=== PATIENT | female | born 1960 | race Caucasian/White ===

== ENCOUNTER → 2017-02-10 | Outpatient (CLI) | payer MEDICARE ==
[~2017-02-10] MED LIST: EXCEDRIN MIGRA1 EACH PO; LEVOTHYROXINE25 MC1 PO; METOPROLOL TAR25 MG; MOTRIN IB200 M1 PO; NORCO 7.5-3251 EACH PO; PROTONIX PO; SUDAFED PO
--- NOTE | ~2017-02-10 | CT2 ---
[facility] A Service of [facility] RADIOLOGY TEXT RESULTS PATIENT: DEVANTE BROOKS [facility] : 62 UNIT #: [id number] AGE: [address]: Toni Gómez MD SEX: F ORDER DR: [id number] [id number] [facility]. [place], [place] [address] [id number] O MR#: [id number] Acc #: [id number] NAME: DEVANTE BROOKS. : 1960 SEX: F STUDY DATE/TIME: 02/10/2017 7:53 UNIT: [facility] ROOM: STUDY DESCRIPTION: CT Abd and Pelv W Cont Attending Physician: Toni Gómez M.D. Referring Physician: Toni Gómez M.D. Ordering Physician: Toni Gómez M.D. Primary Care Physician: Dania Cisneros MEDICAL IMAGING REPORT This report is preliminary unless electronic signature is present EXAM CT abdomen and pelvis INDICATION Colonic polyp. Colon cancer diagnosed in December. Observation for metastatic disease. TECHNIQUE CT of the abdomen and pelvis with p.o. and IV contrast (100 mL Isovue-370 IV contrast). Coronal and sagittal reconstructions were obtained. This CT exam was performed with one or more of the following radiation dose reduction techniques: automatic exposure control, adjustment of mA and/or kV according to patient size, and iterative reconstruction. COMPARISON None available. FINDINGS ABDOMEN: There is postsurgical change of sigmoid colon resection with subsequent re-anastomosis. No residual mass is identified in and around the sigmoid colon. No pathologically-enlarged mesenteric or retroperitoneal lymph nodes. The solid abdominal organs enhance normally. A small amount of pneumobilia suggests prior sphincterotomy. The gallbladder is surgically absent. There is a benign cyst extending off the inferior pole right kidney. The abdominal aorta is normal in caliber. There has been prior anterior abdominal wall hernia repair. PELVIS: The uterus and ovaries are normal. No enlarged pelvic or inguinal lymph nodes. The bladder is unremarkable. No acute osseous abnormalities. [facility] A Service of [facility] RADIOLOGY TEXT RESULTS PATIENT: DEVANTE BROOKS LOCATION: [facility] : 62 UNIT #: [id number] AGE: [address]: Toni Gómez MD SEX: F ORDER DR: IMPRESSION 1. No evidence of metastatic disease in the abdomen or pelvis. 2. Postsurgical change of the sigmoid colon resection with central re-anastomosis. Dictated by... Montez Merchant M.D. THIS IS AN ELECTRONICALLY VERIFIED REPORT Montez Merchant M.D. at 02/10/2017 6:22 PM SOPHIA/jarocho TD: 02/10/2017 16:00 JOB #: [id number] MEDICAL IMAGING REPORT Page 1 of 1 COPY
== END | disposition home or self-care (01) ==
LOC: CCAT 06:23
DX: K63.5 Polyp of colon (principal); Z90.49 Acquired absence of other specified parts of digestive tract
CPT/HCPCS: 74177; Q9967

== ENCOUNTER → 2017-02-26 | Outpatient (CLI) | payer MEDICARE ==
[~2017-02-26] MED LIST changes: +LAMICTAL100 MG PO; +LEVOTHYROXINE50 MC1 PO; +LITHIUM CARBON300 M2 PO; +PANTOPRAZOLE SO40 MG PO; +ZESTRIL5 MG PO
--- NOTE | ~2017-02-26 | TH ---
Unit #: [id number] #: [id number] Patient: DEVANTE BROOKS [id number] [address] [id number] O MR#: [id number] NAME: DEVANTE BROOKS. : 1960 SEX: F STUDY DATE/TIME: 02/26/2017 UNIT: [facility] ROOM: STUDY DESCRIPTION: Attending Physician: Sushma León M.D. Referring Physician: Sushma León M.D. Primary Care Physician: Dania Cisneros CARDIOLOGY REPORT EXAM Exercise Cardiolite stress test, nuclear portion. PROCEDURE Using technetium 99m labeled Cardiolite, rest and stress SPECT images were obtained. Multiple SPECT images were obtained in various views including horizontal and vertical long axis and short axis views of the left ventricle. Images were obtained by gated SPECT method. The patient was administered 11.47 mCi of Cardiolite at rest. The patient was administered 34.2 mCi of Cardiolite at peak exercise. Total exercise time is 5 minutes. On the stress images, there is an extremely small area of mild decreased isotope activity in the anteroapical wall. The rest images showed normal perfusion. Comparing rest and stress images, an extremely small area of possible stress-induced ischemia involving the anteroapical wall of the left ventricle cannot be ruled out. The left ventricular ejection fraction is calculated to be 61%. There is no focal wall motion abnormality seen. CONCLUSION 1. An extremely small area of possible stress-induced ischemia involving the anteroapical wall of the left ventricle cannot be ruled out. 2. The left ventricular ejection fraction is calculated to be 61%. 3. There is no focal wall motion abnormality seen. 4. It must be noted that the patient had chest discomfort and frequent premature ventricular complexes with exercise and during recovery. Clinical correlation is requested. Dictated by... Indy Dia TD: 02/26/2017 15:39 JOB #: [id number] Unit #: [id number] #: [id number] Patient: DEVANTE BROOKS CARDIOLOGY REPORT Page 1 of 1 X Sushma León MD <ELECTRONICALLY SIGNED> 05/31/17 [facility] CARDIOLOGY REPORT
--- NOTE | ~2017-02-26 | ST ---
Unit #: [id number] #: [id number] Patient: DEVANTE BROOKS [id number] [facility]. [address] [address] [id number] O MR#: [id number] NAME: DEVANTE BROOKS. : 1960 SEX: F STUDY DATE/TIME: 02/26/2017 UNIT: [facility] ROOM: STUDY DESCRIPTION: Exercise stress test Attending Physician: Sushma León M.D. Referring Physician: Sushma León M.D. Primary Care Physician: Dania Cisneros CARDIOLOGY REPORT PROCEDURE PERFORMED EKG portion of exercise Cardiolite stress test. REASON FOR EXAM Arrhythmia and chest pain. DISCUSSION Baseline EKG reveals sinus rhythm with a ventricular rate of 80 beats per minute. Nonspecific ST-T wave changes noted. The patient exercised on the treadmill according to the Valentino protocol for 5 minutes and 1 second achieving a workload of 5.6 METS. The maximal heart rate was 155 beats per minute, which represents 93% of the maximal age-predicted heart rate. Maximal blood pressure was 146/91 mmHg. The patient complained of some chest pressure described as a 1/10 in recovery, which resolved. There were frequent PVCs noted at baseline, as well as throughout the study. There was some trigeminy noted at one point, as well as some couplets. The patient was held for pictures. Preliminary images revealed no acute abnormalities. The patient was discharged home. Final report is pending. There were no ST or T wave changes to suggest ischemia. IMPRESSION 1. Nondiagnostic portion of EKG. 2. The patient complained of chest pain in recovery, which resolved. 3. There were frequent PVCs at baseline throughout the study. The patient also had trigeminy and couplets. 4. There were no ST or T wave changes to suggest ischemia. 5. Please correlate with Cardiolite images. Dictated by... Lucia Stern APRN for Indy Dia TD: 02/26/2017 15:01 JOB #: [id number] Unit #: [id number] #: [id number] Patient: DEVANTE BROOKS CARDIOLOGY REPORT Page 1 of 1 X CARDIOLOGY REPORT
== END | disposition home or self-care (01) ==
LOC: CNUC 08:31
DX: R07.9 Chest pain, unspecified (principal); E78.00 Pure hypercholesterolemia, unspecified; I34.0 Nonrheumatic mitral (valve) insufficiency; I34.1 Nonrheumatic mitral (valve) prolapse; I49.3 Ventricular premature depolarization
CPT/HCPCS: 78452; 93017; A9500

== ENCOUNTER → 2017-03-05 | Outpatient (CLI) | payer MEDICARE ==
[~2017-03-05] MED LIST changes: +TOPROL XL100 MG PO; +ZYRTEC5 M1 PO
--- NOTE | ~2017-03-05 | EKG ---
PATIENT: DEVANTE BROOKS UNIT #: [id number] Ventricular Rate: 66 BPM Atrial Rate: 66 BPM P-R Interval: 198 ms QRS Duration: 86 ms Q-T Interval: 398 ms QTC Calculation(Bezet): 417 ms P Hickman: 18 degrees Calculated R Hickman: -10 degrees Calculated T Hickman: 40 degrees Diagnosis Line: Sinus rhythm with occasional Premature ventricular Diagnosis Line: complexes Diagnosis Line: Otherwise normal ECG Diagnosis Line: When compared with ECG of 18-DEC-2016 06:16, Diagnosis Line: Premature ventricular complexes are now Present Diagnosis Line: Confirmed by CHERYL HERNANDEZ MD ([id number]) on 03/05/2017 Diagnosis Line: 10:43:43 PM INTERPRETING MD: MARY HERRING
[2017-03-05 09:32] LABS: HEMATOCRIT 38.6 % (35.0-45.0); HEMOGLOBIN 12.1 gm/dL (12.0-16.0); MEAN CORPUSCULAR HEMOGLOBIN 24.8 PG (28-34); MEAN CORPUSCULAR HGB CONC 31.4 g/dL (30-36); RED BLOOD COUNT 4.89 X10e (3.90-5.30); RED CELL DISTRIBUTION WIDTH 16.1 % (11.0-15.5); WHITE BLOOD COUNT 8.8 X10e3 (4.0-10.5)
[2017-03-05 09:46] LABS: PARTIAL THROMBOPLASTIN TIME 26.1 SECONDS (23.5-31.3)
[2017-03-05 10:05] LABS: BUN/CREATININE RATIO 18.57; CREATININE SERUM 0.7 mg/dL (0.6-1.4); GLOM FILT RATE Estimated 97.5 mL/min (>60)
== END | disposition home or self-care (01) ==
LOC: CCVL 09:01
PROVIDERS: Internal Medicine Cardiovascular Disease
PROC: 4A023N7 Measurement of Cardiac Sampling and Pressure, Left Heart, Percutaneous Approach (ICD-10-PCS; principal; 2017-03-05)
PROC: B211YZZ Fluoroscopy of Multiple Coronary Arteries using Other Contrast (ICD-10-PCS; 2017-03-05)
PROC: B215YZZ Fluoroscopy of Left Heart using Other Contrast (ICD-10-PCS; 2017-03-05)
DX: I50.20 Unspecified systolic (congestive) heart failure (principal); I49.3 Ventricular premature depolarization; I34.0 Nonrheumatic mitral (valve) insufficiency; I34.1 Nonrheumatic mitral (valve) prolapse; R94.39 Abnormal result of other cardiovascular function study; R07.9 Chest pain, unspecified; Z79.899 Other long term (current) drug therapy; E78.00 Pure hypercholesterolemia, unspecified; J30.9 Allergic rhinitis, unspecified; M19.90 Unspecified osteoarthritis, unspecified site; F31.9 Bipolar disorder, unspecified; C18.9 Malignant neoplasm of colon, unspecified; G45.3 Amaurosis fugax; K21.9 Gastro-esophageal reflux disease without esophagitis; G43.109 Migraine with aura, not intractable, without status migrainosus; Z82.61 Family history of arthritis; Z91.5 Personal history of self-harm; Z82.49 Family history of ischemic heart disease and other diseases of the circulatory system; Z81.8 Family history of other mental and behavioral disorders; Z83.3 Family history of diabetes mellitus; Z80.42 Family history of malignant neoplasm of prostate; Z83.42 Family history of familial hypercholesterolemia; Z90.49 Acquired absence of other specified parts of digestive tract; Z98.51 Tubal ligation status
CPT/HCPCS: 36415; 80048; 85027; 85610; 85730; 93005; C1769; C1887; C1894; J1644; J2250; J3010